=== PATIENT | female | born 1965 | race Caucasian/White ===

== ENCOUNTER 2023-02-09 09:21 | Emergency (ER) | payer SELFPAY ==
[~2023-02-09] VITALS: Ht 167 cm; Wt 80.0 kg
[2023-02-09] MEDS ORDERED: ASPIRIN 81 MG CHEWABLE TABLET PO STA (09:37)
--- NOTE | 2023-02-09 09:43 | ED Chest Pain ---
General Chief Complaint: Chest Pain Stated Complaint: CHEST PAIN Source: patient History of Present Illness Date Seen by Provider: Feb 09, 2023 Time Seen by Provider: 09:28 Initial Comments 57-year-old female presenting with complaints of 4 episodes of sharp chest pain in the epigastric area yesterday. She states that it lasted maybe a total of 20 seconds. She was just sitting watching TV when this happened. She denies having any nausea, vomiting, current chest pain, shortness of breath. She does occasionally have difficulty swallowing and feels like something gets stuck right before going to her stomach. She has in the past had to vomit to get that to clear for her. She has never had an EGD or scope to look at the lining of t he stomach and esophagus. She denies any past medical history for herself of heart disease but does have high cholesterol that she takes medicine for. She denies allergies to medications. She states her mother from diabetes and she has a brother that from heart attack but he had multiple health issues. Her dad in an auto accident. She had called her primary provider today and they told her to be evaluated in the ED to check for heart problems. Timing/Duration: resolved prior to arrival Severity/Quality: sharp Location: epigastric Radiation: no radiation Activities at Onset: rest Prior CP/Workup: no prior cardiac workup ASA po PRESSURE DISPATCHER: No NTG SL PRESSURE DISPATCHER: No Associated Symptoms: No abdominal pain, No back pain, No diaphoresis, No dizziness, No edema, No fatigue, No fever/chills, No headache, No heartburn, No nausea/vomiting, No rash, No shortness of breath, No swelling/lump in chest, No syncope, No weakness Allergies and Home Medications Allergies Coded Allergies: No Known Drug Allergies (Unverified , 02/09/23) Patient Home Medication List Home Medication List Reviewed: Yes Pantoprazole Sodium (Pantoprazole Sodium) 20 Mg Tablet., 20 MG PO DAILY Prescribed by: ROSAURA HARDIN on 02/09/23 1031 Review of Systems Review of Systems Constitutional: No chills, No dizziness, No fever EENTM: No Symptoms Reported Respiratory: No Symptoms Reported Cardiovascular: See HPI Gastrointestinal: See HPI Genitourinary: No Symptoms Reported Musculoskeletal: no symptoms reported Skin: no symptoms reported Psychiatric/Neurological: No Symptoms Reported Endocrine: No Symptoms Reported Past Azvkcbo-Inopos-[place]uf Hx Patient Social History Tobacco Use?: No Use of E-Cig and/or Vaping dev: No Substance use?: No Alcohol Use?: No Past Medical History Surgery/Hospitalization HX: Hyperlipidemia Physical Exam Vital Signs Vital Signs - First Documented 02/09/23 10:03 Temp 36.8 Pulse 114 Resp 20 B/P (MAP) 164/78 (106) Pulse Ox 97 O2 Delivery Room Air Capillary Refill : Height, Weight, BMI Height: '" Weight: lbs. oz. kg; BMI Method: General Appearance: No Apparent Distress, WD/WN HEENT: PERRL/EOMI, Pharynx Normal Neck: Full Range of Motion, Normal Inspection, Non Tender, Supple Respiratory: Chest Non Tender, Lungs Clear, Normal Breath Sounds, No Accessory Muscle Use, No Respiratory Distress Cardiovascular: Regular Rate, Rhythm, Normal Peripheral Pulses Gastrointestinal: Normal Bowel Sounds, No Pulsatile Mass, Non Tender, Soft Rectal: Deferred Extremity: Normal Capillary Refill, Normal Inspection, No Calf Tenderness, No Pedal Edema Neurologic/Psychiatric: Alert, Oriented x3 Skin: Normal Color, Warm/Dry Progress/Results/Core Measures Results/Orders Lab Results Laboratory Tests Test 02/09/23 09:30 Range/Units White Blood Count 8.4 4.3-11.0 10^3/uL Red Blood Count 3.66 L 3.80-5.11 10^6/uL Hemoglobin 12.0 11.5-16.0 g/dL Hematocrit 37 35-52 % Mean Corpuscular Volume 101 H 80-99 fL Mean Corpuscular Hemoglobin 33 25-34 pg Mean Corpuscular Hemoglobin Concent 32 32-36 g/dL Red Cell Distribution Width 11.9 10.0-14.5 % Platelet Count 259 130-400 10^3/uL Mean Platelet Volume 9.2 9.0-12.2 fL Immature Granulocyte % (Auto) 0 % Neutrophils (%) (Auto) 62 42-75 % Lymphocytes (%) (Auto) 27 12-44 % Monocytes (%) (Auto) 9 0-12 % Eosinophils (%) (Auto) 1 0-10 % Basophils (%) (Auto) 1 0-10 % Neutrophils # (Auto) 5.2 1.8-7.8 10^3/uL Lymphocytes # (Auto) 2.3 1.0-4.0 10^3/uL Monocytes # (Auto) 0.8 0.0-1.0 10^3/uL Eosinophils # (Auto) 0.1 0.0-0.3 10^3/uL Basophils # (Auto) 0.1 0.0-0.1 10^3/uL Immature Granulocyte # (Auto) 0.0 0.0-0.1 10^3/uL Percent Immature Platelet Fraction 2.0 0.0-7.6 % Prothrombin Time 12.4 12.2-14.7 SEC INR Comment 0.9 0.8-1.4 Activated Partial Thromboplast Time 25 24-35 SEC Sodium Level 140 135-145 MMOL/L Potassium Level 4.3 3.6-5.0 MMOL/L Chloride Level 102 98-107 MMOL/L Carbon Dioxide Level 26 21-32 MMOL/L Anion Gap 12 5-14 MMOL/L Blood Urea Nitrogen 15 7-18 MG/DL Creatinine 0.89 0.60-1.30 MG/DL Estimat Glomerular Filtration Rate 75 BUN/Creatinine Ratio 17 Glucose Level 151 H 70-105 MG/DL Calcium Level 9.2 8.5-10.1 MG/DL Corrected Calcium 8.5-10.1 MG/DL Magnesium Level 1.5 L 1.6-2.4 MG/DL Total Bilirubin 0.4 0.1-1.0 MG/DL Aspartate Amino Transf (AST/SGOT) 27 5-34 U/L Alanine Aminotransferase (ALT/SGPT) 18 0-55 U/L Alkaline Phosphatase 77 40-136 U/L Troponin I < 0.30 <0.30 NG/ML Pro-B-Type Natriuretic Peptide 46.7 <125.0 PG/ML Total Protein 7.8 6.4-8.2 GM/DL Albumin 4.6 H 3.2-4.5 GM/DL Lipase 42 8-78 U/L My Orders Orders - ROSAURA HARDIN MD Cbc And Automated Diff (02/09/23) Magnesium (02/09/23) Chest 1 View Ap/Pa Only (02/09/23) Ekg Tracing (02/09/23) Comprehensive Metabolic Panel (02/09/23) Protime With Inr (02/09/23) Partial Thromboplastin Time (02/09/23) O2 (02/09/23 09:26) Monitor-Rhythm Ecg Trace Only (02/09/23 09:26) Ed Iv/Invasive Line Start (02/09/23 09:26) Lipase (02/09/23 09:26) Troponin I Fs (02/09/23 09:26) Probnp Fs (02/09/23 09:26) Aspirin Chewable Tablet (Aspirin Chewabl (02/09/23 09:37) Vital Signs/I&O 02/09/23 10:03 Temp 36.8 Pulse 114 Resp 20 B/P (MAP) 164/78 (106) Pulse Ox 97 O2 Delivery Room Air Progress Progress Note #1: Progress Note Differential diagnosis includes GERD, gastritis, peptic ulcer disease, esophageal spasm, myocardial infarction. Obtain electrocardiogram to look for signs of ischemia. Placed on cardiac traffic monitor specialist to watch her heart rate and rhythm. My initial interpretation of her cardiac telemetry is that she is showing sinus tachycardia with a heart rate of 10 5-1 15. She does state that she is anxious and does not like having to be in the emergency department or be stuck with a needle. Obtain peripheral IV access and send labs for complete blood count, comprehensive metabolic profile, lipase, troponin, proBNP, pro time, INR, PTT. Chest x-ray to look for pathology to cause her symptoms. Administer aspirin 324 mg p.o. x1. Progress Note #2: Progress Note Electrocardiogram did not show any acute ST elevation. Her labs did not show any acute complication or significant abnormality to account for her symptoms. Her 1 view chest x-ray did not show any acute infiltrate, effusion, mass. Patient continued to deny any pain. As she was resting in the bed and was not as anxious and nervous her heart rate came down into the 70s sinus rhythm as well as her blood pressure came down to 124/86. Reassured patient and encouraged to follow-up with her primary care provider as they may need to do an EGD and/or cardiac stress testing. If having worsening symptoms or more problems she should be seen again sooner. Sent for Protonix sent to the pharmacy to treat for acid reflux in case that was causing some of her dysphagia. Initial ECG Impression Date: Feb 09, 2023 Initial ECG Impression Time: 09:28 Initial ECG Rate: 109 Initial ECG Rhythm: S.Tach Initial ECG Comparisson: No Previous ECG Available Comment My personal interpretation and review the electrocardiogram shows sinus tachycardia with occasional PVCs and a rate of 109 bpm. MD interval [address] elevation. QT interval 328 ms with a QTc interval 392 ms. There is no prior tracing available for comparison. Diagnostic Imaging Diagonstic Imaging: Xray Plain Films/CT/US/NM/MRI: chest Comments [facility]. [place], [place] NAME: LAURA CEDENO [facility] REC#: [id number] PT STATUS: REG ER : 1965 PHYSICIAN: ROSAURA HARDIN MD ADMIT DATE: 02/09/23/ER FS Signed Date of Exam:02/09/23 CHEST 1 VIEW AP/PA ONLY CHEST 1 VIEW AP/PA ONLY Indication: Chest pain. Comparison: None available. Findings: No focal airspace disease in the visualized lungs. No pleural effusion or pneumothorax. Normal cardiomediastinal silhouette. Impression: 1. No acute cardiopulmonary process by portable radiography. Dictated by: Dictated on workstation # [id number] Dict: 02/09/2352 Trans: 02/09/2352 [facility] [id number] Interpreted by: JONATHAN CASTILLO MD Electronically signed by: JONATHAN CASTILLO MD 02/09/23951 Reviewed: Reviewed by Me Departure Impression Primary Impression: Atypical chest pain Additional Impression: Dysphagia Qualified Codes: R13.19 - Other dysphagia Disposition: 01 HOME, SELF-CARE Condition: Stable Departure-Patient Inst. Decision time for Depature: 10:29 Referrals: HUNTER FIELDS APRN (PCP) Primary Care Physician NO,LOCAL PHYSICIAN (Family) Primary Care Physician Patient Instructions: Chest Pain, Adult ED, Dysphagia (DC), Heart Healthy Diet, Soft Diet Add. Discharge Instructions: Your test today did not show any signs of heart attack or acute heart damage. Check back with your primary care provider as they may want to set you up for an EGD or a scope to look at the lining of your esophagus and stomach. They may also want to set you up for a stress test to look from a cardiac standpoint. If you are having worsening pain or new symptoms be seen again for further evaluation. All discharge instructions reviewed with patient and/or family. Voiced understanding. Scripts Pantoprazole Sodium (Pantoprazole Sodium) 20 Mg Tablet. 20 MG PO DAILY for dysphagia for 30 Days, #30 TAB 0 Refills Prov: ROSAURA HARDIN MD 02/09/23 Work/School Note: Work Release Form Date Seen in the Emergency Department: Feb 09, 2023 Return to Work: Feb 09, 2023 Restrictions: No Restrictions ROSAURA HARDIN MD Feb 09, 2023 09:43
[2023-02-09 09:44] LABS: BASOPHILS # (AUTO) 0.1 10^3/uL (0.0-0.1); BASOPHILS % (AUTO) 1 % (0-10); EOSINOPHILS # (AUTO) 0.1 10^3/uL (0.0-0.3); EOSINOPHILS % (AUTO) 1 % (0-10); HEMATOCRIT 37 % (35-52); LYMPHOCYTES # (AUTO) 2.3 10^3/uL (1.0-4.0); LYMPHOCYTES % (AUTO) 27 % (12-44); MEAN CORPUSCULAR HEMOGLOBIN 33 pg (25-34); MEAN CORPUSCULAR HGB CONC 32 g/dL (32-36); MEAN CORPUSCULAR VOLUME 101 fL (80-99); MEAN PLATELET VOLUME 9.2 fL (9.0-12.2); MONOCYTES # (AUTO) 0.8 10^3/uL (0.0-1.0); MONOCYTES % (AUTO) 9 % (0-12); NEUTROPHILS # (AUTO) 5.2 10^3/uL (1.8-7.8); NEUTROPHILS % (AUTO) 62 % (42-75); PLATELET COUNT 259 10^3/uL (130-400); WHITE BLOOD COUNT 8.4 10^3/uL (4.3-11.0)
--- NOTE | 2023-02-09 09:54 | Diagnostic Imaging Report ---
CHEST 1 VIEW AP/PA ONLY Indication: Chest pain. Comparison: None available. Findings: No focal airspace disease in the visualized lungs. No pleural effusion or pneumothorax. Normal cardiomediastinal silhouette. Impression: 1. No acute cardiopulmonary process by portable radiography. Dictated by: Dictated on workstation # [id number]
[2023-02-09 09:58] LABS: INR 0.9 (0.8-1.4); PROTHROMBIN TIME PATIENT 12.4 SEC (12.2-14.7)
[2023-02-09 09:59] LABS: POTASSIUM 4.3 MMOL/L (3.6-5.0); SODIUM 140 MMOL/L (135-145)
[2023-02-09 10:00] LABS: CHLORIDE 102 MMOL/L (98-107)
[2023-02-09 10:03] VITALS: BP 164/78
[2023-02-09 10:12] LABS: ALANINE AMINOTRANSFERASE 18 U/L (0-55); ALBUMIN 4.6 GM/DL (3.2-4.5); ALKALINE PHOSPHATASE 77 U/L (40-136); BILIRUBIN,TOTAL 0.4 MG/DL (0.1-1.0); BUN/CREATININE RATIO 17; CALCIUM 9.2 MG/DL (8.5-10.1); CARBON DIOXIDE 26 MMOL/L (21-32); CREATININE SERUM 0.89 MG/DL (0.60-1.30); GFR ESTIMATED 75; GLUCOSE 151 MG/DL (70-105); MAGNESIUM 1.5 MG/DL (1.6-2.4); TOTAL PROTEIN 7.8 GM/DL (6.4-8.2)
[2023-02-09 10:13] LABS: LIPASE 42 U/L (8-78)
[2023-02-09] MEDS ORDERED: PANT20TA18 PO (10:31)
== END 2023-02-09 10:40 | disposition home or self-care (01) ==
LOC: ER FS 09:23
DX: R07.89 Other chest pain (principal); R13.19 Other dysphagia; R00.0 Tachycardia, unspecified
CPT/HCPCS: 36415; 71045; 80053; 83690; 83735; 83880; 84484; 85025; 85610; 85730; 93005; 93041